=== PATIENT | male | born 2000 | race Two or more races ===

== ENCOUNTER 2019-12-21 03:09 | Emergency (ER) | payer OTHER, SELFPAY ==
[~2019-12-21] VITALS: Ht 172.7 cm; Wt 63.0 kg
--- NOTE | 2019-12-21 04:30 | REPVR ---
PROCEDURE INFORMATION: Exam: US Scrotum and US Duplex Artery and Vein, Scrotum, Complete Exam date and time: 12/21/2019 4:04 AM Age: 19 years old Clinical indication: Scrotum pain; Additional info: Torsion study; L testis pain TECHNIQUE: Imaging protocol: Real-time ultrasound of the scrotum. Real-time duplex ultrasound scan of the arterial and venous flow of the scrotum with B-mode, color Doppler flow and spectral waveform analysis. Complete exam. Duplex images required to evaluate vascular conditions. COMPARISON: No relevant prior studies available. FINDINGS: Right testicle: 3.8 x 2.6 x 2.9 cm. No mass. No torsion. Normal Duplex waveforms and color doppler. Left testicle: 3.7 x 2.4 x 3 cm. No mass. No torsion. Normal Duplex waveforms and color doppler. Epididymides: Mild asymmetric enlargement of the left epididymal enlargement with mild associated hyperemia. Scrotum: Moderate left hydrocele. IMPRESSION: No evidence testicular torsion bilaterally. Moderate left hydrocele. Mild asymmetric enlargement of the left epididymal enlargement with mild associated hyperemia. Left epididymitis is considered. Electronically signed by: Jordan Pavon On 12/21/2019 04:30:59 AM
[2019-12-21] MEDS ORDERED: KEFL500C17 PO (04:58)
[2019-12-21 05:28] VITALS: BP 124/68
[2019-12-21 05:29] LABS: CHLAMYDIA DNA AMPLIFICATION NEGATIVE (NEGATIVE); GC DNA AMPLIFICATION NEGATIVE (NEGATIVE)
== END 2019-12-21 05:30 | disposition home or self-care (01) ==
LOC: M ED 03:09
DX: N43.3 Hydrocele, unspecified (principal); F17.200 Nicotine dependence, unspecified, uncomplicated